=== PATIENT | female | born 1995 | race Caucasian/White ===

== ENCOUNTER 2019-05-03 10:17 | Observation (INO) | payer OTHER ==
[~2019-05-03] VITALS: Ht 167.6 cm; Wt 93.4 kg
[2019-05-03] MEDS ORDERED: PREN-380 PO (10:59)
[2019-05-03 12:38] VITALS: BP 136/85
== END 2019-05-03 15:10 | disposition home or self-care (01) ==
LOC: MLD 10:17
PROVIDERS: ADMIT Obstetrics & Gynecology; ATTEND Obstetrics & Gynecology
DX: O36.8130 Decreased fetal movements, third trimester, not applicable or unspecified (principal); Z3A.31 31 weeks gestation of pregnancy
CPT/HCPCS: 76819; 81000; G0378; Q0092

== ENCOUNTER 2019-05-22 10:45 | Observation (INO) | payer MEDICAID ==
[~2019-05-22] VITALS: Ht 152.4 cm; Wt 98.4 kg
[~2019-05-22 10:45] MED LIST: PREN-380 PO
[2019-05-22 11:32] LABS: BILIRUBIN,URINE 1+ (NEGATIVE); BLOOD, URINE NEGATIVE (NEGATIVE); COLOR,URINE YELLOW (YELLOW); LEUKOCYTE ESTERASE ,URINE TRACE (NEGATIVE); NITRITE, URINE POSITIVE (NEGATIVE); UGLUCOSE NEGATIVE (NEGATIVE)
[2019-05-22 11:46] LABS: APPEARANCE,URINE SLIGHTLY HAZY (CLEAR)
[2019-05-22 11:47] LABS: RBC,URINE 0-5 /HPF (0-5); WBC,URINE 0-5 /HPF (0-5)
[2019-05-22 12:24] LABS: BASOPHILS % (AUTO) 0.5 % (0.0-2.0); EOSINOPHILS # (AUTO) 0.1 K/uL (0-0.4); EOSINOPHILS % (AUTO) 0.8 % (0.0-4.0); HEMATOCRIT 41.2 % (36-48); HEMOGLOBIN 13.6 g/dL (12.0-16.0); LYMPHOCYTES # (AUTO) 2.3 K/uL (2.5-16.5); LYMPHOCYTES % (AUTO) 27.7 % (20.5-51.1); MEAN CORPUSCULAR HEMOGLOBIN 29 pg (27-31); MEAN CORPUSCULAR HGB CONC 33 g/dL (33-37); MEAN CORPUSCULAR VOLUME 86.2 fL (80-94); MONOCYTES # (AUTO) 0.5 K/uL (0.8-1.0); MONOCYTES % (AUTO) 5.8 % (1.7-9.3); NEUTROPHILS # (AUTO) 5.3 K/uL (1.8-7.7); NEUTROPHILS % (AUTO) 65.2 % (42.2-75.2); PLATELET COUNT (AUTO) 214 K/uL (140-450); RED BLOOD CELL COUNT(AUTO) 4.78 MIL/uL (4.20-5.40); RED CELL DISTRIBUTION WIDTH 14.7 % (11.6-13.7); WHITE BLOOD COUNT (AUTO) 8.1 K/uL (4.8-10.8)
[2019-05-22 12:31] LABS: POTASSIUM 5.1 mmol/L (3.5-5.1)
[2019-05-22 12:32] LABS: ANION GAP 11.9 (8-16); CARBON DIOXIDE 26.2 mmol/L (21-32); CREATININE 0.8 mg/dL (0.6-1.3)
[2019-05-22 12:43] LABS: TOTAL BILIRUBIN 0.1 mg/dL (0.0-1.0)
[2019-05-22 13:17] LABS: PROTHROMBIN TIME 8.7 secs (10.8-13.4)
[2019-05-22] MEDS ORDERED: NALBUPHINE 10 MG/ML AMP IVP PRN (15:30)
[2019-05-22] MEDS ORDERED: PROMETHAZINE 25 MG/ML VIAL IVP PRN (15:30)
[2019-05-22] MEDS ORDERED: OXYTOCIN 10 UNITS/ML VIAL IM SCH (15:30)
[2019-05-22] MEDS ORDERED: METHYLERGONOVINE 0.2 MG/ML AMP IM PRN (15:30)
[2019-05-22] MEDS ORDERED: LACTATED RINGERS 1,000 ML IV SCH (15:30)
[2019-05-22] MEDS ORDERED: VITA1TAB44 PO (18:55)
== END 2019-05-22 20:25 | disposition home or self-care (01) ==
LOC: MLD 10:45
PROVIDERS: ADMIT Obstetrics & Gynecology; ATTEND Obstetrics & Gynecology
DX: O26.893 Other specified pregnancy related conditions, third trimester (principal); R03.0 Elevated blood-pressure reading, without diagnosis of hypertension; R60.9 Edema, unspecified; Z3A.35 35 weeks gestation of pregnancy
CPT/HCPCS: 36415; 76805; 80053; 81001; 84157; 84550; 85025; 85384; 85610; 85730; 86592; 86886; 86900; 86901; G0378; Q0092; J7120